=== PATIENT | female | born 1940 | race Caucasian/White ===

== ENCOUNTER 2023-06-20 08:03 | Day surgery (SDC) | payer OTHER ==
[2023-06-16 15:18] LABS: BASOPHILS # (AUTO) 0.05 K/uL (0.00-0.20); BASOPHILS % (AUTO) 0.5 % (0.0-5.0); EOSINOPHILS # (AUTO) 0.13 K/uL (0.00-0.70); EOSINOPHILS % (AUTO) 1.3 % (0.0-8.0); IMMATURE GRANULOCYTE ABSOLUTE 0.04 K/uL (0-1); LYMPHOCYTES # (AUTO) 3.1 K/uL (1.0-4.8); LYMPHOCYTES % (AUTO) 31.1 % (21.0-51.0); MEAN CORPUSCULAR HEMOGLOBIN 26.8 pg (27.0-33.0); MEAN CORPUSCULAR HGB CONC 30.2 g/dL (32.0-36.0); MEAN CORPUSCULAR VOLUME 88.7 fL (79-99); MONOCYTES # (AUTO) 0.5 K/uL (0.1-1.0); NEUTROPHILS # (AUTO) 6.2 K/uL (1.8-7.7); NEUTROPHILS % (AUTO) 61.7 % (40.0-77.0); PLATELET COUNT (AUTO) 202 K/uL (130-400); RED BLOOD CELL COUNT(AUTO) 5.75 MIL/uL (4.00-5.50); RED CELL DISTRIBUTION WIDTH 14.6 % (11.0-15.5)
[2023-06-16 15:27] LABS: INR 1.65 (0.85-1.15); PROTHROMBIN TIME 18.5 SEC (9.6-11.6)
[2023-06-16 15:28] LABS: CREATININE 0.8 mg/dL (0.5-1.5); PARTIAL THROMBOPLASTIN TIME 38.9 SEC (26.3-35.5); POTASSIUM 3.8 mmol/L (3.5-5.1)
[2023-06-16 16:13] VITALS: BP 142/71; PULSE 76; RESP 18
[~2023-06-20] VITALS: Ht 160 cm; Wt 96.4 kg
[2023-06-20] VITALS (21 sets, daily range): BP systolic 105–128; BP diastolic 53–75; PULSE 58–71; RESP 11–24
[~2023-06-20 08:03] MED LIST: AMLO-258 PO; CALC-866 PO; METF-444 PO; NEBI10TA PO; WARF1TAB8 PO
[2023-06-20] MEDS ORDERED: CEFAZOLIN SODIUM 2 GM VIAL ONE (08:11)
[2023-06-20] MEDS ORDERED: 0.9%NACL 1000ML 1,000 ML IV ONE (08:11)
[2023-06-20 08:44] LABS: INR 1.09 (0.85-1.15); PROTHROMBIN TIME 12.6 SEC (9.6-11.6)
[2023-06-20 08:45] LABS: PARTIAL THROMBOPLASTIN TIME 32.1 SEC (26.3-35.5)
[2023-06-20] MEDS ORDERED: PROMETHAZINE HCL 25 MG/ML 1ML AMPULE IM ONE (09:08)
[2023-06-20] MEDS ORDERED: CITRIC ACID/SODIUM CITRATE 30 ML UDCUP ONE (09:11)
[2023-06-20] MEDS ORDERED: DEXAMETHASONE SOD PHOSPHATE 10MG/ML 1ML VIAL ONE (09:13)
[2023-06-20] MEDS ORDERED: LIDOCAINE PF 100MG/5ML (2%) SYRINGE 5ML ONE (09:13)
[2023-06-20] MEDS ORDERED: PROPOFOL 10 MG/ML 20ML VIAL IV ONE (09:14)
[2023-06-20] MEDS ORDERED: ONDANSETRON 4MG INJ ONE (09:14)
[2023-06-20] MEDS ORDERED: FENTANYL CITRATE PF 50 MCG/1 ML 2ML VIAL ONE (09:14)
[2023-06-20] MEDS ORDERED: PROPOFOL 1000 MG/100 ML 100 ML IV ONE (09:18)
[2023-06-20] MEDS ORDERED: BUPIVACAINE/PF 0.25% 30ML VIAL IJ ONE ×3 (09:21→10:31)
[2023-06-20] MEDS ORDERED: CEFAZOLIN SODIUM 2 GM VIAL IVPB ONE ×2 (09:29→10:05)
[2023-06-21 14:30] VITALS: BP 115/62; PULSE 65; RESP 17
== END 2023-06-20 14:00 | disposition home or self-care (01) ==
LOC: DAH 08:03
PROVIDERS: ATTEND Surgery
DX: L72.3 Sebaceous cyst (principal); Z20.822 Contact with and (suspected) exposure to COVID-19; L72.0 Epidermal cyst; I10 Essential (primary) hypertension; E78.5 Hyperlipidemia, unspecified; E11.9 Type 2 diabetes mellitus without complications; K21.9 Gastro-esophageal reflux disease without esophagitis; I45.10 Unspecified right bundle-branch block; Z90.710 Acquired absence of both cervix and uterus; Z90.49 Acquired absence of other specified parts of digestive tract; Z98.890 Other specified postprocedural states; Z88.8 Allergy status to other drugs, medicaments and biological substances; Z88.0 Allergy status to penicillin; Z88.4 Allergy status to anesthetic agent; Z88.3 Allergy status to other anti-infective agents; Z91.041 Radiographic dye allergy status; Z86.73 Personal history of transient ischemic attack (TIA), and cerebral infarction without residual deficits; Z79.84 Long term (current) use of oral hypoglycemic drugs; Z79.01 Long term (current) use of anticoagulants; Z79.899 Other long term (current) drug therapy
CPT/HCPCS: 80048; 85025; 85610 ×2; 85730 ×2; 36415 ×2; 93005; 11404; 82948 ×2; 88304; A6260; A4663; A4452; J3010; J1100; J7030; J3490 ×2; J2550; J2001; J2704 ×2; J2405; J0690 ×2; A4215; A4223; A4222; A4221